=== PATIENT | female | born 1995 | race Caucasian/White ===

== ENCOUNTER 2021-06-06 16:50 | Observation (INO) | payer OTHER ==
[2021-06-06] MEDS ORDERED: Ringers Lactate 1,000 ML IV ONE (17:40)
[2021-06-06] MEDS ORDERED: propofoL 200 MG/20 ML VIAL IV ONE (17:53)
[2021-06-06] MEDS ORDERED: LIDOCAINE 1% MPF 5 ML VIAL ONE (17:54)
[2021-06-06] MEDS ORDERED: ROCURONIUM 50 MG/5 ML VIAL IV ONE (17:59)
[2021-06-06] MEDS ORDERED: FENTANYL CITR 100 MCG/2 ML ONE ×2 (18:01→19:14)
[2021-06-06] MEDS ORDERED: CEFOXITIN/SWI 1gm 1 GM/10 ML SYR ONE ×2 (18:05→23:02)
--- NOTE | 2021-06-06 18:05 | P.HP ---
Date of Service: 06/06/21 PC: This 25-year-old female presented to another outpatient emergency facility with severe right upper quadrant abdominal pain for diagnosis and treatment. HPC: Patient has not been feeling well since Thursday. Has had right upper quadrant abdominal pain, radiating into her back, since that time. Has been unable to get relief. She was found to have acute cholecystitis on work-up. She was transferred to our facility for surgical evaluation and treatment. PSHx: Negative PMHx: Denies any medical issues Social Hx: No known allergies Sys R: No cough, wheeze, shortness of breath. No chest pain or palpitations. Denies any urinary complaints O/E: Awake alert uncomfortable at the moment vital signs are stable HEENT: Nonicteric Chest: Air entry equal bilaterally Abd: Tender with guarding in the right upper quadrant, positive Shirley sign [place]: Intact Data: Elevated white cell count, CT scan consistent with diagnosis of cholecystitis Impression: Acute cholecystitis cholelithiasis Plan: I will take her to the operating room for laparoscopic cholecystectomy with cholangiogram. The risks of this procedure have been discussed. The possibility of bleeding, infection, injury to bile ducts blood vessels and intestines were described. The possible need for an open and/or further surgeries and procedures was discussed. She understands and wants us to proceed.
[2021-06-06] MEDS ORDERED: ONDANSETRON 4 MG/2 ML VIAL ONE (18:39)
[2021-06-06] MEDS ORDERED: KETOROLAC 30 MG/ML INJ ONE (18:39)
[2021-06-06] MEDS ORDERED: dexAMETHasone 10 MG/ML VIAL ONE (18:40)
[2021-06-06] MEDS ORDERED: NEOSTIGMINE 1 MG/ML -5 ML ONE (18:48)
[2021-06-06] MEDS ORDERED: GLYCOPYRROLATE 0.2 MG/ML SYR ONE (18:48)
[2021-06-06] MEDS ORDERED: ONDANSETRON 4 MG/2 ML VIAL IV PRN (19:39)
[2021-06-06] MEDS ORDERED: HYDROCODONE/APAP 7.5/325 MG TAB PO PRN (19:39)
[2021-06-06] MEDS ORDERED: PROMETHAZINE INJ 25 MG/ML AMP ONE (19:40)
[2021-06-06] MEDS ORDERED: MEPERIDINE HCL 25 MG/ML SYR ONE (19:49)
[2021-06-06] MEDS ORDERED: MIDAZOLAM HCL 2 MG/2 ML INJ ONE (19:56)
--- NOTE | 2021-06-06 19:59 | RAD REPORT ---
EXAM DESCRIPTION: RAD - Cholangiogram Oper-Xray Or - 06/06/2021 7:36 pm CLINICAL HISTORY: [facility]Y COMPARISON: No comparisons FINDINGS: Eight fluoroscopic images submitted demonstrating contrast opacification of the common raza e duct, extrahepatic common hepatic duct and some of the intrahepatic bile ducts. No evidence of chol edocholithiasis. No stricture identified. Contrast can be seen entering the duodenum. Cumulative dose: 3.04 mGy Fluoro time: 0.2 minutes IMPRESSION: No evidence of choledocholithiasis or biliary ductal dilatation.
[2021-06-06] MEDS: Ringers Lactate 1,000 ML IV SCH (21:39)
[2021-06-06] MEDS: MORPHINE 4 MG/ML SYR IV PRN (22:11)
[2021-06-07] MEDS ORDERED: CEFOXITIN 1 GM in NA CHLORIDE 0.9% 100 ML IVPB SCH ×2
[2021-06-07] MEDS: CEFOXITIN/SWI 1gm 1 GM/10 ML SYR IV SCH ×2 (00:24→07:28)
[2021-06-07 01:48] VITALS: BMI 25.0
[2021-06-07] MEDS: Ringers Lactate 1,000 ML IV SCH (06:53)
[2021-06-07 08:28] VITALS: BP 132/79; TEMP 98.1
[2021-06-07] MEDS: MORPHINE 4 MG/ML SYR IV PRN (08:39)
[2021-06-07 09:11] VITALS: O2SAT 100
== END 2021-06-07 10:58 | disposition home or self-care (01) ==
LOC: 2ND 16:50 → INTOOBSV 16:50
PROVIDERS: ADMIT Surgery; ATTEND Surgery
PROC: BF10YZZ Fluoroscopy of Bile Ducts using Other Contrast (ICD-10-PCS; 2021-06-06)
PROC: 0FT44ZZ Resection of Gallbladder, Percutaneous Endoscopic Approach (ICD-10-PCS; principal; 2021-06-06 18:00)
DX: K80.12 Calculus of gallbladder with acute and chronic cholecystitis without obstruction (principal); K81.0 Acute cholecystitis
CPT/HCPCS: 88304; 74300; 94010; 47563; J2704; J2550; J2250; J3010 ×2; J1100; J2175; J2710; G0378 ×3; J7120 ×3; J2405; G0379